=== PATIENT | female | born 1970 | race Caucasian/White ===

== ENCOUNTER → 2020-10-07 | Outpatient (CLI) | payer BC, OTHER ==
[~2020-10-07] MED LIST: PRILOSEC 20MG20 MG PO; TOPROL XL25 MG PO; TYLENOL #3 301 UDTAB PO; WELLBUTRIN XL150 MG PO
== END ==
LOC: MC.RAD 08:33
DX: Z12.31 Encounter for screening mammogram for malignant neoplasm of breast (principal); N64.89 Other specified disorders of breast

== ENCOUNTER → 2020-10-09 | Outpatient (CLI) | payer BC, OTHER | LOC: MC.RAD 14:53 | DX: N64.89 Other specified disorders of breast (principal) ==

== ENCOUNTER → 2021-06-01 | Outpatient (CLI) | payer BC, OTHER | LOC: COL.RAD 10:48 | DX: R22.1 Localized swelling, mass and lump, neck (principal) ==